=== PATIENT | female | born 1975 | race Caucasian/White ===

== ENCOUNTER 2023-09-22 07:19 | Outpatient (REF) | payer BC, SELFPAY ==
[2023-09-22 08:32] LABS: Osmolality, Serum 292 mosm/kg (281-305)
[2023-09-22 08:35] LABS: Osmolality Urine 660 mosm/kg (373-1093)
[2023-09-22 08:42] LABS: Anion Gap 13 (12-20); Blood Urea Nitrogen 15 mg/dL (9-16); Calcium 9.8 mg/dL (8.4-10.2); Carbon Dioxide 27 mmol/L (22-29); Chloride 105 mmol/L (96-108); Estimated Glomerular Filt Rate > 60; Glucose Random 72 mg/dL (60-115); Sodium 141 mmol/L (135-145)
== END 2023-09-22 07:20 | disposition home or self-care (01) ==
LOC: HO.LAB 07:19
PROVIDERS: PCP Internal Medicine; Visit Provider Internal Medicine
DX: E87.0 Hyperosmolality and hypernatremia (principal)
CPT/HCPCS: 36415; 80048; 83930; 83935